=== PATIENT | male | born 1930 | race Caucasian/White ===

== ENCOUNTER 2016-12-12 06:11 | Day surgery (SDC) | payer MEDICARE, BC ==
[~2016-12-12] VITALS: Ht 165.1 cm; Wt 78.5 kg
[2016-12-12 07:14] LABS: BASOPHILS 0.2 % (0.0-2.0); EOSINOPHILS 2.5 % (0-7); HEMATOCRIT 42.1 % (42.0-54.0); HEMOGLOBIN 14.3 g/dL (13.5-17.5); IMMATURE GRANULOCYTES 0.2 % (0-5); LYMPHOCYTES 34.2 % (15-50); MCH 30.8 pg (26.0-34.0); MCV 90.5 fL (80.0-100.0); MEAN PLATELET VOLUME 9.1 fL (7.4-10.4); MONOCYTES 11.7 % (2-11); NEUTROPHILS 51.2 % (40-80); PLATELET COUNT 211 10x3/uL (130-400); RBC 4.65 10x6/uL (4.20-6.10); RDW 13.1 % (11.5-14.5); WBC 5.3 10x3/uL (4.8-10.8)
[2016-12-12 07:31] LABS: CALC OSMOLALITY 283 mosm/kg (275-300); CALCIUM 9.3 mg/dL (8.5-10.1); CARBON DIOXIDE 28.1 mmol/L (21.0-32.0); CHLORIDE - SERUM 105 mmol/L (98-107); CREATININE - SERUM 0.9 mg/dL (0.6-1.3); GLUCOSE 112 mg/dL (74-106); POTASSIUM - SERUM 3.7 mmol/L (3.5-5.1); SODIUM 142 mmol/L (136-145); UREA NITROGEN 13 mg/dL (7-18); eGFR NON AFRICAN AMERICAN 85 mL/min (90-120)
[2016-12-12] MEDS ORDERED: ATIVAN1 MG PO (08:23)
[2016-12-12] MEDS ORDERED: DIFLUCAN150 MG PO (08:23)
[2016-12-12] MEDS ORDERED: NORVASC5 MG PO (08:24)
[2016-12-12] MEDS ORDERED: OMEPRAZOLE20 M1 PO (08:25)
[2016-12-12] MEDS ORDERED: PRAVASTATIN SOD10 MG PO (08:25)
[2016-12-12] MEDS ORDERED: COREG12.5 MG PO (08:25)
[2016-12-12] MEDS ORDERED: TRAZODONE HCL50 MG PO (08:26)
[2016-12-12] MEDS ORDERED: CELEXA20 MG PO (08:26)
[2016-12-12] MEDS ORDERED: ADVAIR 250/501 DISK INH (08:27)
[2016-12-12] MEDS ORDERED: CATAPRES0.1 MG PO (08:31)
[2016-12-12 08:38] VITALS: BP 194/87; Ht 165.1 cm; Wt 78.5 kg
--- NOTE | 2016-12-12 12:00 | NUR ---
DISCHARGED HOME VIA WHEELCHAIR TO PRIVATE VEHICLE WITH SPOUSE, AWAKE AND ALERT AND WITH NO COMPLAINTS
--- NOTE | 2016-12-16 09:51 | OP ---
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 PROCEDURE: Microsuspension laryngoscopy, biopsy of the left true vocal cord. SURGEON: Michael Perea MD ANESTHESIA: General orotracheal. BLOOD LOSS: Less than 1 cc. SPECIMENS: Multiple biopsies from the left true vocal cord. COMPLICATIONS: None. DISPOSITION: Recovery stable. FINDINGS: The lesion extended the entire length of the cord and very anteriorly, it did not looked like it involved the anterior commissure, but it does extend on the inferior surface of the cord right through it, exactly the midline of the anterior commissure extended posteriorly on the full length of the cord and up on to the medial aspect of the left arytenoid. DESCRIPTION OF PROCEDURE: He was brought to the operating room and placed in supine position, sedated and intubated by anesthesia. The table was turned 90 degrees. A head drape was applied and he was positioned for laryngoscopy. He was edentulous ____ a Kleinsasser J. laryngoscope, a plastic upper tooth guard was placed over his alveolar ridge, even though he did not have teeth. The hypopharynx, lateral pharyngeal lozano, tonsils, vallecula, base of tongue, supraglottic larynx, the piriforms, postcricoid area were all examined and normal. He had this obvious left cord lesion. It was mostly on the superior surface of the cord. It was exophytic and granular, friable. It extended posteriorly past the vocal process of the arytenoid and superiorly as well from the medial aspect of the arytenoid involving the entire cord anteriorly and extended just under the surface of the cord right up to the exact midline of the anterior commissure not involving the right cord at all, but right up to it. The subglottis was normal. It was suspended just to get a closer view, because it was really hard to tell anteriorly the extent of lesions, so we suspend it and the microscope was brought in to examine that area. A 2-mm upbiting cup forcep was used to take multiple biopsies along the length of the superior surface of the cord and arytenoid to get a good biopsy specimen. There was really no significant bleeding. The area was suctioned. It was clean and dry. He is taken out of suspension. The laryngoscope and the plastic tooth guard were removed. He was awakened, extubated, and transported to recovery in good condition. No complications. TRANSINT:[id number] Voice Confirmation ID: [id number] DOCUMENT ID: [id number] OPERATIVE REPORT [id number] MISAEL TOM, MICHAEL PERALES at 0951 CC: [id number] DICTATION DATE: 12/12/16 1020 ACUPRESSURIST: 12/12/16 1136 [facility] 12/12/16 [facility] [address] [place] [address]
--- NOTE | 2016-12-16 09:51 | HP ---
PATIENT: MISAEL TOM MEDICAL RECORD: [id number] ACCOUNT: [id number] LOCATION:[facility] : 32 ADMISSION DATE: 12/12/16 HISTORY AND PHYSICAL EXAMINATION HISTORY OF PRESENT ILLNESS: Misael is an 86-year-old male sent over by Dr. Mendoza with hoarseness. He has been found to have a left vocal cord lesion. He is being admitted for laryngoscopy and biopsies. PAST MEDICAL HISTORY: Includes hypertension, COPD, and reflux. PAST SURGICAL HISTORY: Includes coronary bypass in 2000, hernia repair, prostate surgery in 1999, herniated disc surgery in 2015, knee replacement in 2011. ALLERGIES: No known drug allergies. MEDICATIONS: Include citalopram, Advair, aspirin, carvedilol, albuterol, pravastatin, clonidine, loratadine, meclizine, Meloxicam and pantoprazole. PHYSICAL EXAMINATION: GENERAL: He is healthy appearing. He has a hoarse voice. FACE: Normal and symmetric. EYES: Sclerae and conjunctivae are normal. EARS: Canals and TMs are normal. NOSE: No masses, polyps or drainage. ORAL CAVITY AND OROPHARYNX: Dry. Some mild thrush, but no lesions. NECK: No masses, no adenopathy. Flexible laryngoscopy reveals a left true vocal cord lesion, is exophytic involving the entire cord from the anterior commissure to the vocal process of the arytenoid, but may have some limited mobility, but is still moving somewhat. CHEST: Clear. CARDIOVASCULAR: Regular rate and rhythm, no murmur. EXTREMITIES: Normal. IMPRESSION: Hoarseness, left vocal cord lesion. PLAN: Microsuspension laryngoscopy and biopsy left vocal cord lesion. TRANSINT:[id number] Voice Confirmation ID: [id number] DOCUMENT ID: [id number] JEAN MARIE PEREA MD at 0951 CC: [id number] DICTATION DATE: 12/08/16 1401 [employer] OPERATOR: 12/08/16 1426 [facility] 12/12/16 [place] [id number]
== END 2016-12-12 12:00 | disposition home or self-care (01) ==
LOC: D.OPS 06:11 → D.PAN 08:40 → D.OPS 08:40
PROVIDERS: Anesthesiology
DX: R49.0 Dysphonia (principal); J38.3 Other diseases of vocal cords; I10 Essential (primary) hypertension; J44.9 Chronic obstructive pulmonary disease, unspecified; K21.9 Gastro-esophageal reflux disease without esophagitis; Z95.1 Presence of aortocoronary bypass graft; Z79.82 Long term (current) use of aspirin; Z79.1 Long term (current) use of non-steroidal anti-inflammatories (NSAID); Z79.899 Other long term (current) drug therapy

== ENCOUNTER → 2016-12-28 19:19 | Outpatient (CLI) | payer MEDICARE, BC ==
[2016-12-12 08:38] VITALS: BMI 28.6
[~2016-12-28 19:19] MED LIST: ADVAIR 250/501 DISK INH; ATIVAN1 MG PO; CATAPRES0.1 MG PO; CELEXA20 MG PO; COREG12.5 MG PO; DIFLUCAN150 MG PO; NORVASC5 MG PO; OMEPRAZOLE20 M1 PO; PRAVASTATIN SOD10 MG PO; TRAZODONE HCL50 MG PO
[2016-12-28 19:59] LABS: BASOPHILS 0.3 % (0.0-2.0); EOSINOPHILS 3.3 % (0-7); HEMATOCRIT 43.4 % (42.0-54.0); HEMOGLOBIN 14.9 g/dL (13.5-17.5); IMMATURE GRANULOCYTES 0.3 % (0-5); LYMPHOCYTES 30.7 % (15-50); MCHC 34.3 g/dL (31.0-37.0); MCV 90.4 fL (80.0-100.0); MEAN PLATELET VOLUME 9.9 fL (7.4-10.4); MONOCYTES 9.2 % (2-11); NEUTROPHILS 56.2 % (40-80); PLATELET COUNT 213 10x3/uL (130-400); RDW 13.1 % (11.5-14.5); WBC 6.3 10x3/uL (4.8-10.8)
[2016-12-28 20:10] LABS: ALBUMIN 4.1 g/dL (3.4-5.0); ALKALINE PHOSPHATASE 42 U/L (46-116); ALT (SGPT) 23 U/L (10-68); BILIRUBIN - TOTAL 0.47 mg/dL (0.2-1.3); CALC OSMOLALITY 281 mosm/kg (275-300); CALCIUM 9.2 mg/dL (8.5-10.1); CHLORIDE - SERUM 105 mmol/L (98-107); CREATININE - SERUM 0.9 mg/dL (0.6-1.3); GLUCOSE 103 mg/dL (74-106); POTASSIUM - SERUM 4.2 mmol/L (3.5-5.1); PROTEIN - SERUM 6.9 g/dL (6.4-8.2); SODIUM 141 mmol/L (136-145); UREA NITROGEN 16 mg/dL (7-18); eGFR NON AFRICAN AMERICAN 85 mL/min (90-120)
== END | disposition home or self-care (01) ==
LOC: D.LABREF 19:19
PROVIDERS: Student in an Organized Health Care Education/Training Program
DX: B40.9 Blastomycosis, unspecified (principal)

== ENCOUNTER → 2017-02-01 20:44 | Outpatient (CLI) | payer MEDICARE, BC ==
[2016-12-12 08:38] VITALS: BMI 28.6
[2017-02-01 23:12] LABS: BASOPHILS 0.2 % (0.0-2.0); EOSINOPHILS 4.3 % (0-7); HEMATOCRIT 41.7 % (42.0-54.0); HEMOGLOBIN 13.8 g/dL (13.5-17.5); IMMATURE GRANULOCYTES 0.2 % (0-5); LYMPHOCYTES 32.4 % (15-50); MCH 31.2 pg (26.0-34.0); MCHC 33.1 g/dL (31.0-37.0); MCV 94.1 fL (80.0-100.0); MEAN PLATELET VOLUME 10.3 fL (7.4-10.4); MONOCYTES 9.5 % (2-11); NEUTROPHILS 53.4 % (40-80); PLATELET COUNT 231 10x3/uL (130-400); RBC 4.43 10x6/uL (4.20-6.10); RDW 13.7 % (11.5-14.5); WBC 5.6 10x3/uL (4.8-10.8)
[2017-02-01 23:38] LABS: ALBUMIN 3.9 g/dL (3.4-5.0); ALKALINE PHOSPHATASE 43 U/L (46-116); ALT (SGPT) 33 U/L (10-68); BILIRUBIN - TOTAL 0.48 mg/dL (0.2-1.3); CALC OSMOLALITY 286 mosm/kg (275-300); CALCIUM 9.1 mg/dL (8.5-10.1); CARBON DIOXIDE 26.5 mmol/L (21.0-32.0); CHLORIDE - SERUM 106 mmol/L (98-107); CREATININE - SERUM 0.9 mg/dL (0.6-1.3); GLUCOSE 80 mg/dL (74-106); POTASSIUM - SERUM 4.4 mmol/L (3.5-5.1); PROTEIN - SERUM 6.7 g/dL (6.4-8.2); SODIUM 143 mmol/L (136-145); UREA NITROGEN 20 mg/dL (7-18); eGFR NON AFRICAN AMERICAN 85 mL/min (90-120)
== END | disposition home or self-care (01) ==
LOC: D.LABREF 20:44
PROVIDERS: Student in an Organized Health Care Education/Training Program
DX: B40.9 Blastomycosis, unspecified (principal); Z51.81 Encounter for therapeutic drug level monitoring; Z79.899 Other long term (current) drug therapy

== ENCOUNTER → 2017-03-01 20:47 | Outpatient (CLI) | payer MEDICARE, BC ==
[2016-12-12 08:38] VITALS: BMI 28.6
[2017-03-01 23:55] LABS: BASOPHILS 0.2 % (0-2); EOSINOPHILS 5.9 % (0-7); HEMATOCRIT 43.2 % (42.0-54.0); HEMOGLOBIN 14.4 g/dL (13.5-17.5); IMMATURE GRANULOCYTES 0.4 % (0-5); LYMPHOCYTES 36.8 % (15-50); MCH 31.3 pg (26.0-34.0); MCHC 33.3 g/dL (31.0-37.0); MCV 93.9 fL (80.0-100.0); MEAN PLATELET VOLUME 10.4 fL (7.4-10.4); MONOCYTES 10.5 % (2-11); NEUTROPHILS 46.2 % (40-80); PLATELET COUNT 225 10x3/uL (130-400); RDW 13.7 % (11.5-14.5); WBC 5.2 10x3/uL (4.8-10.8)
[2017-03-02 00:15] LABS: ALBUMIN 4.1 g/dL (3.4-5.0); ALKALINE PHOSPHATASE 44 U/L (46-116); ALT (SGPT) 30 U/L (10-68); BILIRUBIN - TOTAL 0.54 mg/dL (0.2-1.3); CALC OSMOLALITY 280 mosm/kg (275-300); CARBON DIOXIDE 27.3 mmol/L (21.0-32.0); CHLORIDE - SERUM 105 mmol/L (98-107); GLUCOSE 79 mg/dL (74-106); POTASSIUM - SERUM 4.5 mmol/L (3.5-5.1); SODIUM 139 mmol/L (136-145); UREA NITROGEN 24 mg/dL (7-18); eGFR NON AFRICAN AMERICAN 75 mL/min (90-120)
== END | disposition home or self-care (01) ==
LOC: D.LABREF 20:47
PROVIDERS: Student in an Organized Health Care Education/Training Program
DX: Z79.2 Long term (current) use of antibiotics (principal); A07.3 Isosporiasis